=== PATIENT | female | born 1995 | race Caucasian/White ===

== ENCOUNTER 2023-01-01 23:39 | Emergency (ER) | payer MEDICAID ==
[~2023-01-01] VITALS: Ht 165.1 cm; Wt 81.6 kg
[2023-01-02 00:28] VITALS: BP 112/65; PULSE 71; RESP 20; TEMP 98.4; O2SAT 98
[2023-01-02] MEDS ORDERED: IBUP-2213 PO (03:09)
[2023-01-02] MEDS ORDERED: PRED20TA5 PO (03:09)
[2023-01-02 03:15] VITALS: BP 120/79; PULSE 81; RESP 17; TEMP 98.4; O2SAT 98
== END 2023-01-02 03:15 | disposition home or self-care (01) ==
LOC: MED 23:39
DX: R07.89 Other chest pain (principal); R05.9 Cough, unspecified
CPT/HCPCS: 93005; 99283